=== PATIENT | male | born 1935 | race Caucasian/White ===

== ENCOUNTER → 2017-04-03 | Outpatient (CLI) | payer MEDICARE ==
[~2017-04-03] MED LIST: ASPIRIN81 M2 PO; ATORVASTATIN CA40 MG PO; BENAZEPRIL HCL40 MG PO; BENTYL20 MG PO; FLUOXETINE HCL20 MG PO; HYDROCHLOROTH12.5 M3 PO; LASIX40 MG PO; NIFEDIPINE ER90 MG PO; OMEPRAZOLE20 MG PO
== END | disposition home or self-care (01) ==
LOC: CDC 13:28
DX: Z01.810 Encounter for preprocedural cardiovascular examination (principal); N40.1 Benign prostatic hyperplasia with lower urinary tract symptoms; N13.8 Other obstructive and reflux uropathy; I44.0 Atrioventricular block, first degree; I44.4 Left anterior fascicular block; I49.8 Other specified cardiac arrhythmias
CPT/HCPCS: 93000